=== PATIENT | male | born 1995 | race Asian ===

== ENCOUNTER 2022-09-29 09:08 | Emergency (ER) | payer OTHER ==
[~2022-09-29] VITALS: Ht 180.3 cm; Wt 77.1 kg
--- NOTE | 2022-09-29 09:26 | NUR ---
27 years old male walk in to er c/o anxiety depression, poor coping skill, denies SI/HI but stated hearing voices.
[2022-09-29] MEDS ORDERED: OLANZAPINE 10 MG VIAL IM ONE ×2 (09:45→09:47)
[2022-09-29 09:50] LABS: HEMATOCRIT 48.2 % (36.7-47.1); MEAN CORPUSCULAR HEMOGLOBIN 30.2 uug (23.8-33.4); PLATELET COUNT (AUTO) 178 K/uL (152-348)
[2022-09-29 10:08] LABS: CARBON DIOXIDE 28 mmol/L (21-32); CHLORIDE 102 mmol/L (98-107); CREATININE 0.8 mg/dL (0.6-1.3); GLUCOSE 103 mg/dL (74-106); UREA NITROGEN, BLOOD 11 mg/dL (7-18)
[2022-09-29 10:11] LABS: *BILIRUBIN,URIN 1+ (NEGATIVE); *BLOOD, URINE NEGATIVE (NEGATIVE); *CLARITY,URINE CLEAR (CLEAR); *COLOR,URINE YELLOW (YELLOW); *KETONES,URINE 3+ (NEGATIVE); *UROBILINOGEN,URINE 0.2 E.U./dl (NORMAL); LEUKOCYTE ESTERASE ,URINE NEGATIVE (NEGATIVE); NITRITE, URINE NEGATIVE (NEGATIVE); PH,URINE 5.5 (5.0-8.0); UGLUCOSE NEGATIVE (NEGATIVE)
[2022-09-29 10:13] LABS: ALANINE AMINOTRANSFERASE 39 U/L (16-63); ALKALINE PHOSPHATASE 104 U/L (50-136); ASPARTATE AMINOTRANSFERASE 17 U/L (15-37); BILIRUBIN,DIRECT 0.2 mg/dL (0.0-0.2); BILIRUBIN,TOTAL 0.8 mg/dL (0.2-1.0); TOTAL PROTEIN, SERUM 8.5 g/dL (6.4-8.2)
[2022-09-29 10:14] LABS: ACETAMINOPHEN < 2.0 ug/mL (10-30); ETHANOL < 3 MG/DL (0-0)
[2022-09-29 10:22] LABS: *AMPHETAMINE, URINE NEGATIVE (NEGATIVE); *CANNABINOID, URINE NEGATIVE (NEGATIVE); *COCCAINE, URINE NEGATIVE (NEGATIVE); *PHENCYCLIDINE SCREEN,URINE NEGATIVE (NEGATIVE)
--- NOTE | 2022-09-29 10:51 | NUR ---
patient medically cleared.
--- NOTE | 2022-09-29 11:00 | NUR ---
Social work consult was requested for a patient in the emergency room for mental health resources. Patient is 27-year-old male, and he is alert and oriented X4. Patient presents with depressed mood and congruent affect. Patient states his primary contact is his sister, Starr ([phone]). Patient states he lives at [address] [place] [address] with one roommate. Patient denies a history of substance abuse and the toxicology is negative. Patient states he has a history of bipolar 1 and was taking Risperdal but has not been compliant. JESSY provided the patient with mental health resource for [facility] [address] [address] ([phone]). Patient states he is having suicidal ideation and denies homicidal ideation. Patient states he is open to going to [facility] and JESSY contacted [facility] ([phone]) and faxed him the patients face sheet and clinical information (fax: [phone]). Patient was accepted to [facility] and was transported at 1:15pm.
--- NOTE | 2022-09-29 13:17 | NUR ---
patient alert, oriented x4 ate lunch prior to departure tolerated well, transfer to [facility] for psych treatment left with [facility].
== END 2022-09-29 13:23 ==
LOC: ER 09:08
DX: R45.851 Suicidal ideations (principal); R44.0 Auditory hallucinations; F31.9 Bipolar disorder, unspecified; Z91.14 Patient's other noncompliance with medication regimen; F41.9 Anxiety disorder, unspecified; Z20.822 Contact with and (suspected) exposure to COVID-19
CPT/HCPCS: 36415; 85025; A4663; G0480; J2358